=== PATIENT | male | born 1970 | race Caucasian/White ===

== ENCOUNTER → 2024-07-03 08:19 | Outpatient (REF) | payer OTHER, SELFPAY | LOC: RAD 08:19 | PROVIDERS: ATTENDING PHYSICIAN Family Medicine; FAMILY PHYSICIAN Family Medicine | DX: R09.89 Other specified symptoms and signs involving the circulatory and respiratory systems (principal); R00.2 Palpitations | CPT/HCPCS: 76770; 93225; 93226 ==

== ENCOUNTER → 2024-09-27 13:41 | Outpatient (REF) | payer OTHER, SELFPAY | LOC: RCS 13:41 | PROVIDERS: ATTENDING PHYSICIAN Nuclear Medicine Nuclear Cardiology; FAMILY PHYSICIAN Family Medicine | DX: I10 Essential (primary) hypertension (principal); I47.29 Other ventricular tachycardia | CPT/HCPCS: 93306 ==

== ENCOUNTER → 2024-10-11 12:28 | Outpatient (REF) | payer OTHER, SELFPAY | LOC: RCS 12:28 | PROVIDERS: ATTENDING PHYSICIAN Nuclear Medicine Nuclear Cardiology; FAMILY PHYSICIAN Family Medicine | DX: I10 Essential (primary) hypertension (principal); I47.29 Other ventricular tachycardia | CPT/HCPCS: 93017; 93350 ==

== ENCOUNTER → 2024-11-01 06:25 | Outpatient (REF) | payer SELFPAY | LOC: RAD 06:25 | PROVIDERS: ATTENDING PHYSICIAN Family Medicine | DX: Q23.1 Congenital insufficiency of aortic valve (principal) | CPT/HCPCS: 75571; 76872 ==